=== PATIENT | female | born 1975 | race Caucasian/White ===

== ENCOUNTER 2021-08-09 11:02 | Inpatient (IN) | payer MEDICAID ==
[~2021-08-09] VITALS: Ht 160 cm; Wt 93.2 kg
[~2021-08-09 11:02] MED LIST: ATOR10TA PO; HYDR-4383 PO; HYDR25TA5 PO; Hydralazine Hcl PO; LABE100T5 PO; NITR0.4T51 SL; PANT-47 PO
[2021-08-09] MEDS ORDERED: magnesium 2GM in 50ml NS 50 ML IV ONE (11:20)
[2021-08-09] MEDS ORDERED: normal saline 1000ml 1,000 ML IV ONE (11:20)
[2021-08-09 12:09] LABS: ALBUMIN 3.5 G/DL (3.4-5.0); ANION GAP 11 (8-16); BLOOD UREA NITROGEN 16 MG/DL (7-18); BUN/CREATININE RATIO 15.4 (6.6-38.0); CALCIUM 8.2 MG/DL (8.5-10.1); CHLORIDE 99 MMOL/L (99-107); CREATININE 1.04 MG/DL (0.40-0.90); GLUCOSE 188 MG/DL (70-104); POTASSIUM 3.2 MMOL/L (3.5-5.1); SODIUM 136 MMOL/L (135-145); TOTAL CARBON DIOXIDE 25.6 MMOL/L (24-32); eGFR 57 ML/MIN
[2021-08-09 12:10] LABS: BASOPHILS # (AUTO) 0.1 X10'3 (0-0.2); BASOPHILS % (AUTO) 0.5 % (0-1); EOSINOPHILS # (AUTO) 0.3 X10'3 (0-0.9); EOSINOPHILS % (AUTO) 2.4 % (0-6); HEMATOCRIT 35.5 % (35.0-45.0); HEMOGLOBIN 11.9 g/dl (12.0-16.0); LYMPHOCYTES % (AUTO) 17.5 % (21-51); MEAN CORPUSCULAR HEMOGLOBIN 31.3 PG (27.0-31.0); MEAN CORPUSCULAR HGB CONC 33.7 g/dL (33.0-36.5); MEAN CORPUSCULAR VOLUME 92.9 FL (78-98); MEAN PLATELET VOLUME 7.8 FL (7.4-10.4); MONOCYTES # (AUTO) 0.5 X10'3 (0-0.9); MONOCYTES % (AUTO) 4.6 % (2-12); NEUTROPHILS # (AUTO) 8.8 X10'3 (1.8-7.7); PLATELET COUNT 326 X10'3 (140-440); RED BLOOD COUNT 3.81 X10'6 (4.20-5.60); RED CELL DISTRIBUTION WIDTH 14.1 % (11.5-14.5); WHITE BLOOD COUNT 11.7 X10'3 (4.5-11.0)
[2021-08-09] MEDS ORDERED: potassium Cl 20 mEq SR tablet PO STA (12:25)
[2021-08-09] MEDS ORDERED: POTASSIUM BICARB 20meq eff tab 20 MEQ TABLET.EFF PO STA (12:59)
[2021-08-09] MEDS ORDERED: potassium Cl 20 mEq SR tablet PO PRN (15:20)
[2021-08-09] MEDS ORDERED: acetaminophen 325mg tablet PO PRN (15:20)
[2021-08-09] MEDS ORDERED: magnesium 4gm in 100ml NS 100 ML IV PRN (15:20)
[2021-08-09] MEDS ORDERED: ondansetron/PF 4mg/2ml inj IV PRN (15:20)
[2021-08-09] MEDS ORDERED: mag hydrox/Alum hydrox/simeth 30ml oral suspension PO PRN (15:20)
[2021-08-09] MEDS ORDERED: magnesium hydroxide 30ml (MOM) UD suspension PO PRN (15:20)
[2021-08-09] MEDS ORDERED: potassium CL 10mEq/100ml bag 100 ML IV PRN (15:20)
[2021-08-09] MEDS ORDERED: magnesium 2GM in 50ml NS 50 ML IV PRN (15:20)
[2021-08-09] MEDS ORDERED: magnesium Cl slow-release 64mg tablet PO PRN (15:20)
[2021-08-09] MEDS ORDERED: PERFLUTREN PROTEIN-A MICROSPHR (Optison) 0.22 MG/ML 3ML VIAL IV ONE (15:20)
[2021-08-09] MEDS ORDERED: DOBUTamine-DoBUTrex 500mg/D5W 250 ML IV SCH (15:50)
[2021-08-09] MEDS ORDERED: ALOG12.52 PO (16:14)
[2021-08-09] MEDS ORDERED: METF-1203 PO (16:14)
[2021-08-09] MEDS ORDERED: GABA-530 PO (16:14)
[2021-08-09] MEDS ORDERED: LOSA100T57 PO (16:14)
[2021-08-09] MEDS ORDERED: SERT-432 PO (16:14)
[2021-08-09] MEDS ORDERED: CHLO50TA PO (16:14)
[2021-08-09] MEDS ORDERED: ATOR20TA66 PO (16:14)
[2021-08-09] MEDS ORDERED: CARV25TA2 PO (16:14)
[2021-08-09] MEDS: normal saline 1000ml 1,000 ML IV SCH (17:52)
[2021-08-09] MEDS: K and/or MAG REPLACEMENT MC SCH (20:00)
[2021-08-09] MEDS: gabapentin 100mg capsule PO SCH (20:40)
[2021-08-09] MEDS: heparin, porcine 5000 units/ml vial SQ SCH (20:41)
[2021-08-09] MEDS: docusate sod 100mg capsule PO SCH (20:41)
[2021-08-10] MEDS: potassium Cl 20 mEq SR tablet PO PRN ×2 (00:23→09:55)
[2021-08-10] MEDS: normal saline 1000ml 1,000 ML IV SCH ×2 (01:20→11:33)
--- NOTE | 2021-08-10 06:30 | NUR ---
Patient transfering from the ED into room PCU 3028. I have received report from Cate HOLLINGSWORTH and had the opportunity to ask questions and assume patient care.
[2021-08-10 07:00] LABS: BASOPHILS % (AUTO) 0.7 % (0-1); EOSINOPHILS # (AUTO) 0.2 X10'3 (0-0.9); EOSINOPHILS % (AUTO) 3.5 % (0-6); HEMATOCRIT 33.9 % (35.0-45.0); HEMOGLOBIN 11.7 g/dl (12.0-16.0); LYMPHOCYTES # (AUTO) 2.5 X10'3 (1.1-4.8); LYMPHOCYTES % (AUTO) 36.7 % (21-51); MEAN CORPUSCULAR HEMOGLOBIN 32.2 PG (27.0-31.0); MEAN CORPUSCULAR HGB CONC 34.3 g/dL (33.0-36.5); MEAN CORPUSCULAR VOLUME 93.9 FL (78-98); MEAN PLATELET VOLUME 7.6 FL (7.4-10.4); MONOCYTES # (AUTO) 0.4 X10'3 (0-0.9); MONOCYTES % (AUTO) 6.3 % (2-12); NEUTROPHILS # (AUTO) 3.6 X10'3 (1.8-7.7); NEUTROPHILS % (AUTO) 52.8 % (42-75); PLATELET COUNT 311 X10'3 (140-440); RED BLOOD COUNT 3.61 X10'6 (4.20-5.60); RED CELL DISTRIBUTION WIDTH 14.6 % (11.5-14.5); WHITE BLOOD COUNT 6.8 X10'3 (4.5-11.0)
[2021-08-10] MEDS ORDERED: metFORMIN 500mg tablet PO SCH (07:30)
[2021-08-10 07:39] LABS: ALBUMIN 3.4 G/DL (3.4-5.0); ANION GAP 9 (8-16); BLOOD UREA NITROGEN 12 MG/DL (7-18); BUN/CREATININE RATIO 14.8 (6.6-38.0); CALCIUM 8.3 MG/DL (8.5-10.1); CHLORIDE 105 MMOL/L (99-107); CREATININE 0.81 MG/DL (0.40-0.90); GLUCOSE 118 MG/DL (70-104); POTASSIUM 3.4 MMOL/L (3.5-5.1); SODIUM 140 MMOL/L (135-145); eGFR 76 ML/MIN
[2021-08-10 08:00] VITALS: BP 102/68
[2021-08-10] MEDS ORDERED: chlorthalidone 25mg tablet PO SCH (08:00)
[2021-08-10] MEDS: K and/or MAG REPLACEMENT MC SCH (08:00)
[2021-08-10] MEDS ORDERED: atorvastatin 20mg tablet PO SCH (08:00)
[2021-08-10] MEDS ORDERED: linagliptin 5mg tablet PO SCH (08:00)
[2021-08-10] MEDS ORDERED: losartan 50mg tablet PO SCH (08:00)
[2021-08-10] MEDS: docusate sod 100mg capsule PO SCH (09:54)
[2021-08-10] MEDS: gabapentin 100mg capsule PO SCH (09:54)
[2021-08-10 09:55] VITALS: BP_SYST 102
[2021-08-10] MEDS: heparin, porcine 5000 units/ml vial SQ SCH (09:56)
[2021-08-10] MEDS ORDERED: CARV-49 PO (10:39)
--- NOTE | 2021-08-10 12:40 | NUR ---
Patient is stable for discharge per MD. PIV was removed with canula intact and telemetry was discontinued. Belongings were gathered and patient was escorted by significant other to the car to be transported home.
== END 2021-08-10 12:40 | disposition home or self-care (01) | DRG 207 ==
LOC: ER 11:03 → UNDOADMIN 15:22 → ED HOLD 15:22 → OBSVTOIN 15:22 → EDBEDREQ 08-10 06:33 → PCU 3S 08-10 07:41
PROVIDERS: ADMIT Family Medicine; ATTEND Family Medicine
DX: I95.9 Hypotension, unspecified (principal); E11.9 Type 2 diabetes mellitus without complications; E66.9 Obesity, unspecified; E87.6 Hypokalemia; F12.90 Cannabis use, unspecified, uncomplicated; R94.31 Abnormal electrocardiogram [ECG] [EKG]; I10 Essential (primary) hypertension; K21.9 Gastro-esophageal reflux disease without esophagitis; F41.9 Anxiety disorder, unspecified; Z82.5 Family history of asthma and other chronic lower respiratory diseases; Z88.8 Allergy status to other drugs, medicaments and biological substances; Z68.36 Body mass index [BMI] 36.0-36.9, adult; Z79.899 Other long term (current) drug therapy
CPT/HCPCS: 36415; 71045; 80048; 82948; 83735; 85025; 93005; 93306; 96365; 99285; G0378; J1644; J3475; J7030

== ENCOUNTER 2024-06-25 17:33 | Emergency (ER) | payer MEDICAID ==
[~2024-06-25] VITALS: Ht 160 cm; Wt 93.4 kg
[~2024-06-25 17:33] MED LIST changes: +ALOG12.52 PO; -ATOR10TA PO; +ATOR20TA66 PO; +CHLO50TA PO; +GABA-530 PO; -HYDR-4383 PO; -HYDR25TA5 PO; -Hydralazine Hcl PO; -LABE100T5 PO; +LOSA100T58 PO; +METF-1203 PO; -NITR0.4T51 SL; -PANT-47 PO
[2024-06-25 18:03] VITALS: PULSE 81; RESP 16
[2024-06-25] MEDS ORDERED: HYDR50TA46 PO (18:36)
[2024-06-25] MEDS ORDERED: CEPH-585 PO (18:42)
[2024-06-25] MEDS: cephalexin 250mg capsule PO ONE (18:55)
[2024-06-25 18:56] VITALS: BP 220/125; TEMP 97.1; O2SAT 98
== END 2024-06-25 19:00 | disposition home or self-care (01) ==
LOC: ER 17:34
DX: L72.9 Follicular cyst of the skin and subcutaneous tissue, unspecified (principal); L08.9 Local infection of the skin and subcutaneous tissue, unspecified; I10 Essential (primary) hypertension; F12.90 Cannabis use, unspecified, uncomplicated; Z88.8 Allergy status to other drugs, medicaments and biological substances; Z79.899 Other long term (current) drug therapy
CPT/HCPCS: 99283

== ENCOUNTER 2024-11-03 09:01 | Emergency (ER) | payer MEDICAID ==
[~2024-11-03] VITALS: Ht 160 cm; Wt 90.4 kg
[~2024-11-03 09:01] MED LIST changes: -GABA-530 PO; +HYDR50TA46 PO; -METF-1203 PO
[2024-11-03 09:06] VITALS: TEMP 98.1
[2024-11-03 09:29] LABS: BASOPHILS # (AUTO) 0.1 X10'3 (0-0.2); BASOPHILS % (AUTO) 0.8 % (0-1); EOSINOPHILS # (AUTO) 0.4 X10'3 (0-0.9); EOSINOPHILS % (AUTO) 3.8 % (0-6); HEMATOCRIT 48.1 % (35.0-45.0); HEMOGLOBIN 16.6 g/dl (12.0-16.0); LYMPHOCYTES % (AUTO) 30.1 % (21-51); MEAN CORPUSCULAR HEMOGLOBIN 30.7 PG (27.0-31.0); MEAN CORPUSCULAR HGB CONC 34.5 g/dL (33.0-36.5); MEAN CORPUSCULAR VOLUME 89.1 FL (78-98); MEAN PLATELET VOLUME 7.5 FL (7.4-10.4); MONOCYTES # (AUTO) 0.5 X10'3 (0-0.9); MONOCYTES % (AUTO) 5.3 % (2-12); NEUTROPHILS # (AUTO) 5.9 X10'3 (1.8-7.7); PLATELET COUNT 294 X10'3 (140-440); RED BLOOD COUNT 5.39 X10'6 (4.20-5.60); WHITE BLOOD COUNT 9.9 X10'3 (4.5-11.0)
[2024-11-03 09:51] LABS: ALANINE AMINOTRANSFERASE 75 U/L (12-78); ALBUMIN 4.1 G/DL (3.4-5.0); ALBUMIN/GLOBULIN RATIO 0.9 (1.1-1.5); ALKALINE PHOSPHATASE 119 IU/L (46-116); ANION GAP 11 (8-16); ASPARTATE AMINO TRANSFERASE 39 U/L (10-37); BILIRUBIN,TOTAL 0.6 MG/DL (0.1-1.0); BLOOD UREA NITROGEN 16 MG/DL (7-18); BUN/CREATININE RATIO 18.2 (10.0-20.0); CALCIUM 9.2 MG/DL (8.5-10.1); CHLORIDE 100 MMOL/L (99-107); CREATININE 0.88 MG/DL (0.40-0.90); GLUCOSE 247 MG/DL (70-104); LIPASE 38 U/L (16-77); POTASSIUM 3.1 MMOL/L (3.5-5.1); SODIUM 138 MMOL/L (135-145); TOTAL CARBON DIOXIDE 26.6 MMOL/L (24-32); TOTAL PROTEIN 8.6 G/DL (6.4-8.2); eCRCL 63 ML/MIN; eGFR 68 ML/MIN
[2024-11-03 10:08] LABS: BILIRUBIN,URINE NEGATIVE (Neg); CLARITY,URINE SLIGHTLY CLOUDY (Clear); COLOR,URINE YELLOW (Yellow); GLUCOSE, URINE NEGATIVE (Neg); KETONES,URINE NEGATIVE (Neg); LEUKOCYTE ESTERASE ,URINE NEGATIVE (Neg); NITRITES, URINE NEGATIVE (Neg); OCCULT BLOOD,URINE NEGATIVE (Neg); PROTEIN,URINE 100 mg/dl (Neg); UROBILINOGEN,URINE 0.2 E.U/dL (0.2-1.0)
[2024-11-03 10:12] LABS: UA COLLECTION TYPE URINAL
[2024-11-03 10:14] LABS: BACTERIA,URINE FEW /HPF (Neg); MUCUS STRANDS FEW /LPF (Neg); RBC,URINE NONE SEEN /HPF (0-2); SQUAMOUS EPITHELIAL CELL,UR MANY /LPF (FEW); WBC,URINE 0-4 /HPF (0-4)
[2024-11-03] MEDS: POTASSIUM CHLORIDE 20 MEQ/15 ML oral solution PO STA (11:02)
[2024-11-03] MEDS: normal saline 1000ml 1,000 ML IV ONE (11:26)
[2024-11-03 11:53] LABS: URINE HCG NEGATIVE (NEG)
[2024-11-03 13:31] VITALS: BP 148/96; PULSE 83; RESP 14; O2SAT 97
== END 2024-11-03 13:45 | disposition home or self-care (01) ==
LOC: ER 09:02
DX: B34.9 Viral infection, unspecified (principal); I10 Essential (primary) hypertension; F12.90 Cannabis use, unspecified, uncomplicated; Z20.822 Contact with and (suspected) exposure to COVID-19
CPT/HCPCS: 36415; 71045; 80053; 81001; 81025; 83690; 85025; 87502; 87503; 87811; 93005; 96360; 99285; J7030; 96361; 96374

== ENCOUNTER 2025-01-18 08:12 | Inpatient (IN) | payer MEDICAID ==
[~2025-01-18] VITALS: Ht 160 cm; Wt 90.9 kg
--- NOTE | 2025-01-18 08:24 | Physician Documentation ---
History of Present Illness ~ Stated Complaint: STROKE ALERT Time Seen by MD: 08:20 Primary Medical Doctor: Rebeca HPI 49 yof h/o htn, brain mass s/p resection 2022 Patient presents today for headache and facial droop. She reports going to bed around midnight feeling fine woke up this morning around 6 with feeling of headache and feeling off. Reports noticing right sided facial droop. Medication Reconciliation Allergies: Uncoded Allergies: DEPO PROVERA (Allergy, Intermediate, 10/29/13) DEPO SHOT (Allergy, Intermediate, 10/29/13) Scheduled Alogliptin Benzoate (Alogliptin), 1 TAB PO DAILY, (Reported) Atorvastatin Calcium (Atorvastatin Calcium), 1 TAB PO DAILY, (Reported) Chlorthalidone (Chlorthalidone), 1 TAB PO DAILY, (Reported) Hydralazine HCl (Hydralazine HCl), 1 TAB PO TID, (Reported) Losartan Potassium (Losartan Potassium), 1 TAB PO DAILY, (Reported) Past Medical History Past Medical History: Hypertension, Constipation, *RENAL/* Past Surgical History: other Alcohol Use: None Drug Use: marijuana Review of Systems All Other Systems at this time: Reviewed and Negative Constitutional: Denies: fever Respiratory: Denies: shortness of breath Cardiovascular: Denies: chest pain Gastrointestinal: Denies: abdominal pain Physical Exam General Appearance Well-appearing no distress resting comfortably in bed No JVD Moist mucous membranes Pulmonary clear to auscultation bilaterally Cardiac no murmur Abdomen is soft nontender Lower extremity no edema Awake alert oriented Awake alert oriented Right sided lower facial droop. No eyelid eye or forehead involvement Cranial nerves 2-12 intact Visual anne full to confrontation Pupils PERRLA Extraocular motions intact Normal speech no aphasia no dysarthria Normal [id number] no dysmetria 5/5 bilateral upper and lower extremity strength No pronator drift diminished left facial sensation. Negative Romberg Normal gait t-PA t-PA given w/in 2hrs?: No Reason t-PA not Given: Medical Contraindication Progress Progress Note 10:45 a.m. 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 discussed case with stroke Neurology at [facility] on-call physician who based on the clinical symptoms does not 1203 d/w Dr. Baker neuro IR [facility] recomends anti platelets and MRI. no emergent intervention Results/Orders Reviewed/noted all lab results: Yes Results/Orders Orders - BHANU DUNN MD Monitor (01/18/25 08:18) 2 Large Bore Ivs (01/18/25 08:18) Chest,Single View (01/18/25 08:18) Accucheck (01/18/25 08:18) Ct Stroke Alert (01/18/25 08:26) Cta Neck/Head (01/18/25 08:39) [place] Prov.Neuro Consult (01/18/25 08:18) [place] Prov.Neuro Consult (01/18/25 08:21) Page Hospitalist (01/18/25 10:45) Fill Out Med Reconciliation (01/18/25 10:45) Completed Orders - BHANU DUNN MD Cbc/Diff (01/18/25 08:18) Electrocardiogram (01/18/25 08:18) Chest,Single View (01/18/25 08:18) Ct Stroke Alert (01/18/25 08:26) BMP (01/18/25 08:18) PTT (01/18/25 08:18) Pt Inr (01/18/25 08:18) Cta Neck/Head (01/18/25 08:39) Iohexol 350mg/Ml 100ml (Omnipaque 350mg/ (01/18/25 08:25) Ketorolac Trometh 15mg/Ml Vial (Toradol (01/18/25 09:50) Ringers Solution, Lacted (Lactated Ringe (01/18/25 09:50) Aspirin 81mg Chew Tablet (Aspirin 81mg C (01/18/25 11:00) Clopidogrel Tablet (Plavix Tablet) (01/18/25 11:00) Hgb A1c (01/18/25 08:27) Medications Received in ER Medications (Trade) Dose Ordered Sig/[place] Route PRN Reason Start Time Stop Time Status Last Admin Dose Admin (Toradol injection) 15 mg ONCE ONCE IV 01/18/25 09:50 01/18/25 09:52 DC 01/18/25 10:10 15 MG Lactated Ringer's 1,000 ml @ 1,000 mls/hr ONCE ONCE IV 01/18/25 09:50 01/18/25 10:49 DC 01/18/25 10:07 1,000 MLS/HR (aspirin 81MG chew tablet) 81 mg ONCE ONCE PO 01/18/25 11:00 01/18/25 11:18 DC 01/18/25 11:22 81 MG (Plavix tablet) 75 mg ONCE ONCE PO 01/18/25 11:00 01/18/25 11:18 DC 01/18/25 11:21 75 MG Vital Signs 01/18/25 01/18/25 01/18/25 01/18/25 08:39 08:54 09:11 09:13 Temp 97.8 97.8 Pulse 86 78 80 Resp 18 18 24 20 B/P (MAP) 214/112 201/106 203/107 (139) Pulse Ox 99 98 98 01/18/25 01/18/25 01/18/25 01/18/25 09:33 10:10 10:49 10:50 Temp 97.8 Pulse 76 73 73 Resp 16 10 20 20 B/P (MAP) 200/119 183/109 (133) 183/109 Pulse Ox 98 98 98 Laboratory Tests Test 01/18/25 08:27 White Blood Count 6.5 Red Blood Count 4.71 Hemoglobin 14.2 Hematocrit 41.3 Mean Corpuscular Volume 87.7 Mean Corpuscular Hemoglobin 30.1 Mean Corpuscular Hemoglobin Concent 34.4 Red Cell Distribution Width 13.7 Platelet Count 229 Mean Platelet Volume 7.4 Neutrophils (%) (Auto) 54.8 Lymphocytes (%) (Auto) 34.3 Monocytes (%) (Auto) 4.9 Eosinophils (%) (Auto) 5.0 Basophils (%) (Auto) 1.0 Neutrophils # (Auto) 3.5 Lymphocytes # (Auto) 2.2 Monocytes # (Auto) 0.3 Eosinophils # (Auto) 0.3 Basophils # (Auto) 0.1 CBC Comment Prothrombin Time 9.9 INR International Normalized Ratio 1.0 Activated Partial Thromboplast Time 25 Coagulation Comments Sodium Level 139 Potassium Level 3.8 Chloride Level 104 Carbon Dioxide Level 25.4 Anion Gap 10 Blood Urea Nitrogen 12 Creatinine 0.79 Estimated GFR/1.73 m2 77 BUN/Creatinine Ratio 15.2 Glucose Level 220 H Hemoglobin A1c 8.3 H Calcium Level 9.0 Albumin 3.6 Chemistry Comments EKG/XRAY/CT/US/VASC/MRI CT : Impression I independently interpreted CTA shows no acute stroke Medical Decision Making Differential Dx:Considerations: Include: Fuentes's Palsey, CVA, Mass lesion Departure Disposition: ADMITTED INPATIENT Admitted to Inpatient Unit: to hospitalist Impression: Primary Impression: CVA (cerebral vascular accident) Referrals: NO PRIMARY CARE PROVIDER (PCP) Critical Care Note Total Time (mins): 30 Critical Care Note The very real possibility of a deterioration of this patient's condition required the highest level of my preparedness for sudden, emergent intervention. I provided critical care services, which included medication orders, frequent reevaluations of the patient's condition and response to treatment, ordering and reviewing test results, and discussing the case with various consultants. Excl udes time spent performing separately billable procedures. The critical care time associated with the care of the patient was 30 minutes in the acute management of CVA requiring consideration for tPA Signature Scribe Signature: kumar Attestation: BHANU Echols MD January 18, 2025 08:24
[2025-01-18] MEDS ORDERED: iohexol 350MG/ML 100ml bottle IV ONE (08:25)
[2025-01-18 08:38] LABS: BASOPHILS # (AUTO) 0.1 X10'3 (0-0.2); EOSINOPHILS # (AUTO) 0.3 X10'3 (0-0.9); HEMATOCRIT 41.3 % (35.0-45.0); HEMOGLOBIN 14.2 g/dl (12.0-16.0); LYMPHOCYTES # (AUTO) 2.2 X10'3 (1.1-4.8); LYMPHOCYTES % (AUTO) 34.3 % (21-51); MEAN CORPUSCULAR HEMOGLOBIN 30.1 PG (27.0-31.0); MEAN CORPUSCULAR HGB CONC 34.4 g/dL (33.0-36.5); MEAN CORPUSCULAR VOLUME 87.7 FL (78-98); MEAN PLATELET VOLUME 7.4 FL (7.4-10.4); MONOCYTES # (AUTO) 0.3 X10'3 (0-0.9); MONOCYTES % (AUTO) 4.9 % (2-12); NEUTROPHILS # (AUTO) 3.5 X10'3 (1.8-7.7); NEUTROPHILS % (AUTO) 54.8 % (42-75); PLATELET COUNT 229 X10'3 (140-440); RED BLOOD COUNT 4.71 X10'6 (4.20-5.60); RED CELL DISTRIBUTION WIDTH 13.7 % (11.5-14.5); WHITE BLOOD COUNT 6.5 X10'3 (4.5-11.0)
--- NOTE | 2025-01-18 08:43 | ELECTROCARDIOGRAPH REPORT ---
[facility] Test Date: 2025-01-18 Test Time: 08:41:16 Pat Name: SONJA BAÑUELOS Department: [facility] Patient ID: [facility]-[id number] Room: [place] [address] Gender: F Sequins Winder: : 1975 Requested By: BHANU DUNN Order Number: [id number] Reading MD: Dr. Alexander Black Measurements Intervals [place] Rate: 85 P: 52 AR: 179 QRS: 76 QRSD: 95 T: 257 QT: 366 QTc: 436 Interpretive Statements Pacemaker spikes or artifacts Sinus rhythm Borderline repolarization abnormality Electronically Signed On 01-19-2025 11:01:[address] Alexander Black Please click the below link to view image of tracing.
--- NOTE | 2025-01-18 08:46 | RADIOLOGY REPORT ---
EXAM: CT CT STROKE ALERT INDICATION: Stroke Alert TECHNIQUE: CT of the head without intravenous contrast. Coronal and sagittal reformatted images are s ubmitted. Radiation Dose : 1. Head: CT Dose: CTDI volume is 64.1 mGy. Dose-length product is 1077.8 mGy*cm The dose indicators for CT are the volume Computed Tomography (CT) Dose Index (CTDIvol) and the Dose Length Product (DLP), and are measured in units of mGy and mGy-cm, respectively. These indicators are not patient dose, but values generated from the CT scanner acquisition factors. The report includes radiation exposure data for exposures received during this examination. All CT scans at this medical facility are performed using dose modulation techniques as appropriate to a performed exam including the following: Automated exposure control was utilized; adjustment of the MA and/or KV according to patient size; and use of iterative reconstruction technique. COMPARISON: None FINDINGS: There is no evidence of acute intracranial hemorrhage, extra-axial collection, mass effect, midline s hift, herniation or hydrocephalus. The ventricles, sulci and cisterns are age appropriate. The zabala-white differentiation is intact. Mucosal thickening in the sphenoid sinus. Mastoid air cells are clear. Empty sella noted. No depressed calvarial fracture. Calcified mass in the vertex. IMPRESSION: 1. No acute intracranial abnormality.
[2025-01-18 08:48] LABS: ALBUMIN 3.6 G/DL (3.4-5.0); ANION GAP 10 (8-16); BLOOD UREA NITROGEN 12 MG/DL (7-18); BUN/CREATININE RATIO 15.2 (10.0-20.0); CHLORIDE 104 MMOL/L (99-107); CREATININE 0.79 MG/DL (0.40-0.90); GLUCOSE 220 MG/DL (70-104); POTASSIUM 3.8 MMOL/L (3.5-5.1); SODIUM 139 MMOL/L (135-145); TOTAL CARBON DIOXIDE 25.4 MMOL/L (24-32); eCRCL 70 ML/MIN; eGFR 77 ML/MIN
[2025-01-18 08:50] LABS: APTT 25 SECONDS (22-32); PROTHROMBIN TIME 9.9 SECONDS (9.0-12.0)
--- NOTE | 2025-01-18 09:03 | RADIOLOGY REPORT ---
INDICATION: Stroke Alert COMPARISON: None TECHNIQUE:CTA head and neck was performed with intravenous contrast. 3D/MIP image postprocessing was performed and images were used for interpretation and reporting. RADIATION DOSE: CTDIvol: 23.8 mGy, DLP: 11.9 mGy*cm FINDINGS: There is focal high-grade stenosis in the right internal carotid artery at its cavernous segment. The remainder of the right internal carotid artery is patent. Left internal carotid artery is patent No evidence of high-grade stenosis or occlusion of the proximal branch vessels of the [place]. The basilar artery is patent. Hypoplastic P1 segment of the left posterior communicating artery. The intracranial segments of the bilateral vertebral arteries are unremarkable in caliber. Posterior com municating arteries are hypoplastic or absent. No evidence of large aneurysm or arteriovenous malform ation. The visualized thoracic aortic arch and proximal great vessels are unremarkable. The left common, int ernal and external carotid arteries are within normal limits. The right common, internal and external carotid arteries are within normal limits. The cervical segments of the right and left vertebral art eries are within normal limits. The limited visualized lung apices are clear. Multilevel cervical spo ndylosis. IMPRESSION: 1. 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 The remainder of the right ICA is patent. No large vessel occlusion. 2. No evidence of hemodynamically significant cervical stenosis or dissection. CAROTID STENOSIS REFERENCE Distal internal carotid artery diameter as the denominator for stenosis measurement: MILD = <50% stenosis. MODERATE = 50-69% stenosis. SEVERE = 70-89% stenosis. CRITICAL = 90-99% stenosis. OCCLUDED = 100% stenosis. All CT scans at this medical facility are performed using dose modulation techniques as appropriate t o a performed exam including the following: Automated exposure control was utilized; adjustment of th e MA and/or KV according to patient size; and use of iterative reconstruction technique.
--- NOTE | 2025-01-18 09:09 | RADIOLOGY REPORT ---
CHEST RADIOGRAPH Indication: Stroke Alert Technique: Single frontal view of the chest was obtained Comparison: DI CHEST,SINGLE VIEW on DOS: 11/03/24, CHEST,SINGLE VIEW on DOS: 08/09/21 FINDINGS: Lines and Tubes: None Lungs: No focal consolidation. Pleura: No effusion. No pneumothorax. Cardiomediastinal contours: Unremarkable Bones: No acute osseous abnormality. IMPRESSION: No acute cardiopulmonary disease.
[2025-01-18] MEDS: ringers solution, lacted 1,000 ML IV ONE (10:07)
[2025-01-18] MEDS: ketorolac trometh 15mg/ml vial 15 MG/ML ML IV ONE (10:10)
--- NOTE | 2025-01-18 11:07 | [facility] CONSULT REPORT ---
[facility] Procedure Note [facility] Procedure Note Consult Addendum BP 214/112 Addendum added and electronically signed at 01/18/2025 11:06 () by MD Marcelino Alfred Neuro Note # Demographics Consult Type: Acute Stroke Level 2 (4.5-24 hrs) Patient Location: Emergency Room First Name: SONJA Last Name: EDDA Date of : 1975 Age: 49 Gender: Female Facility: [facility] Time of Initial Page (): 01/18/2025 09:50 Time of Return Call (): 01/18/2025 09:50 # HPI Chief Complaint: - headache History: 49 F with a PMHx of brain tumor s/p resection, poorly controlled HTN, went to bed at midnight felt fine, this morning at 6 AM felt a headache, generalized pain and R facial droop and numbness. She had some LUE tingling associated with facial numbness. # Scores Time of exam and NIHSS (): 01/18/2025 10:44 Level of Consciousness 1a: [0] = Alert; keenly responsive LOC Questions 1b: [0] = Answers both questions correctly LOC Commands 1c: [0] = Performs both tasks correctly Best Gaze 2: [0] = Normal Visual 3: [0] = No visual loss Facial Palsy 4: [2] = Partial paralysis Motor Arm Left 5a: [0] = No drift Motor Arm Right 5b: [0] = No drift Motor Leg Left 6a: [0] = No drift Motor Leg Right 6b: [0] = No drift Limb Ataxia 7: [0] = Absent Sensory 8: [0] = Normal Best Language 9: [0] = No aphasia Dysarthria 10: [0] = Normal Extinction and Inattention 11: [0] = No abnormality NIHSS Total: 2 # Exam Vitals: vital signs reviewed Cranial Nerves: R facial with decreased eyebrow raise on the R # Data Head CT: - no bleed - per radiologist read CTA Head: focal high grade R ICA stenosis CTA Neck: patent vessels # Assessment Impression: - Ischemic Stroke (Acute) # Plan Thrombolytic/Intervention: NOT IV Thrombolysis or IA Intervention candidate Thrombolytic Exclusion: > 4.5 hours Intraarterial Exclusion: - no large vessel occlusion (LVO) Labs: - CBC - comprehensive metabolic panel - hemoglobin A1c - lipid panel Imaging: (urgency: routine): - MRI Brain without contrast Diagnostic Test: - echo with bubble study Therapy/Evaluation: - NPO until swallow evaluation - PT/OT evaluation Medication: - aspirin 81 mg PLUS clopidogrel (Plavix) 75 mg for 21 days, then monotherapy therafter - start statin with goal of LDL < 70 Other: - If patient has any neurological deterioration please call me back immediately - telemetry monitoring - I have discussed my recommendations with the referring provider - permissive hypertension - LDL < 70 Disposition: admit # Logistics Attestation of consult completion: The patient is located at: [facility]. Facility staff participated in the visit. I performed this telemedicine visit from my offsite office utilizing interactive 2 way audio and visual telecommunication technology. Total time spent in telemedicine encounter: I spent 20 minutes reviewing clinical data and/or imaging, obtaining history, examining the patient, communicating with the onsite care team, and in preparation of this report. # Demographics First Name: SONJA Last Name: EDDA Facility: [facility] Electronically signed at 01/18/2025 11:06 ([place] Time) by Neena Vidal MD Neuro Consult Order placed for: Yes NEENA VIDAL MD January 18, 2025 11:07
[2025-01-18] MEDS: clopidogrel 75mg tablet PO ONE (11:21)
[2025-01-18] MEDS: aspirin 81mg tab.chew PO ONE (11:22)
[2025-01-18] MEDS ORDERED: dextrose 50%-water 50ml dispensing syringe IV PRN ×2 (11:40)
[2025-01-18] MEDS ORDERED: DEXTROSE 15 GM of carb/4 tabs (each vial/BOTTLE has 4 tablets) PO PRN ×2 (11:40)
[2025-01-18] MEDS ORDERED: glucagon, human recombinant 1mg kit SUBCUT PRN (11:40)
[2025-01-18] MEDS ORDERED: magnesium sulf-water 4G/100mL 100 ML IV PRN (11:40)
[2025-01-18] MEDS ORDERED: mag hydrox/Alum hydrox/simeth 30ml oral suspension PO PRN (11:40)
[2025-01-18] MEDS ORDERED: magnesium hydroxide 30ml (MOM) UD suspension PO PRN (11:40)
[2025-01-18] MEDS ORDERED: potassium Cl 20 mEq SR tablet PO PRN (11:40)
[2025-01-18] MEDS ORDERED: potassium Cl 40MEQ/1/2NS 520ml 520 ML IV PRN (11:40)
[2025-01-18] MEDS ORDERED: magnesium sulf-water 2g/50mL 50 ML IV PRN (11:40)
[2025-01-18] MEDS ORDERED: ondansetron/PF 4mg/2ml inj IV PRN (11:40)
[2025-01-18] MEDS: INSULIN LISPRO 100 UNIT/ML INSULN.PEN MULTI-DOSE SQ SCH ×2 (12:00→23:02)
[2025-01-18] MEDS: PERFLUTREN PROTEIN-A MICROSPHR (Optison) 0.22 MG/ML 3ML VIAL IV ONE (12:27)
[2025-01-18 12:35] LABS: HEMOGLOBIN A1C 8.3 % (4.5-6.2)
--- NOTE | 2025-01-18 13:36 | RADIOLOGY REPORT ---
EXAM: MR MRI HEAD CLINICAL HISTORY: Acute CVA COMPARISON: CT brain 01/18/2025 TECHNIQUE: Multiplanar, multisequence magnetic resonance imaging of the brain was performed after the administra tion of intravenous contrast. FINDINGS: The FLAIR and blood sensitive sequence are not available. Mild diffuse brain atrophy. Mild chronic small-vessel ischemic changes. No hemorrhages on the provided sequences. No masses, mass effect, midline shift, herniation or cytoto xic edema following a large vascular territory. No intra-axial or extra-axial fluid collections. No evidence of hydrocephalus. The basal cisterns are patent. The vascular flow voids are maintained. There is Nonspecific partially Empty sella. Cerebellar tonsils are normal position. The cerebellum i s unremarkable. Motion artifact limits evaluation of the globes. Otherwise, orbits and globes are unremarkable. Righ t-sided sinonasal postsurgical changes. Minimal mucoperiosteal thickening of the ethmoid air cells an d right maxillary sinus. The remainder of the paranasal sinuses and mastoids are clear. Redemonstrat ion of nodular scalp lesions measuring up to 1.7 cm which may represent sebaceous cysts. No worrisom e calvarial lesions. IMPRESSION: No evidence of acute intracranial abnormalities.
[2025-01-18] MEDS ORDERED: LIDO700A47 TOP (14:36)
[2025-01-18] MEDS ORDERED: FENO160T34 PO (14:36)
[2025-01-18] MEDS ORDERED: ERGO500093 PO (14:36)
[2025-01-18] MEDS ORDERED: LANTUS SQ (14:36)
[2025-01-18] MEDS ORDERED: SERT-434 PO (14:36)
[2025-01-18] MEDS ORDERED: IBUP-1985 PO (14:36)
[2025-01-18] MEDS ORDERED: EMPA10TA PO (14:36)
[2025-01-18] MEDS ORDERED: SEMA1PEN5 (14:36)
[2025-01-18] MEDS ORDERED: GLIM1TAB57 PO (14:36)
[2025-01-18] MEDS ORDERED: POTA-207 PO (14:36)
[2025-01-18] MEDS ORDERED: GABA-535 PO (14:36)
[2025-01-18] MEDS ORDERED: CYCL-1 PO (14:36)
[2025-01-18] MEDS ORDERED: CHLO25TA10 PO (14:36)
[2025-01-18] MEDS: labetalol 20mg/4ml (5mg/ml) syringe IV ONE (14:58)
[2025-01-18] MEDS: oxyCODONE/APAP 5-325mg tablet PO ONE (15:20)
[2025-01-18] MEDS: methylPREDNISolone sod succ 125mg/2ml vial IV ONE (15:20)
[2025-01-18] MEDS: acyclovir 200 MG capsule PO ONE (15:49)
[2025-01-18 17:00] VITALS: BP 192/92; PULSE 89; RESP 12; TEMP 97.8; O2SAT 97
[2025-01-18 20:00] VITALS: RESP 12; O2SAT 97
[2025-01-18] MEDS: K and/or MAG REPLACEMENT MC SCH (20:00)
[2025-01-18] MEDS: acetaminophen 325mg tablet PO PRN (20:36)
[2025-01-18] MEDS: docusate sod 100mg capsule PO SCH (20:36)
[2025-01-18] MEDS: insulin glargine (Lantus) pen - multi-dose SQ SCH (20:38)
[2025-01-18 22:00] VITALS: BP 178/91; PULSE 80; RESP 16; TEMP 98.8; O2SAT 95
--- NOTE | 2025-01-18 22:05 | HISTORY AND PHYSICAL ---
History & Physical Providers to CC ~ History of Present Illness Reason for Admit\Complaint: Facial droop and blurry vision History of Present Illness This is a 49-year-old female who had a surgery for a brain tumor resection likely a meningioma as how the patient describes the lesion two years ago. The patient was at her normal self when she went to bed last evening and she woke up this morning with a headache and a right-sided facial droop as well as mild eyelid lag on the left. The patient has a poorly controlled diabetic and her hemoglobin A1c is 8.3-tele neurologist recommended stroke workup and starting 75 mg of Plavix today along with 81 mg aspirin and to obtain a fasting lipid panel in the keep LDL below 70 Allergies: Uncoded Allergies: DEPO PROVERA (Allergy, Intermediate, 10/29/13) DEPO SHOT (Allergy, Intermediate, 10/29/13) Home Medications Home Medications Active Reported K-Dur* (Potassium Chloride) 20 Meq Tab.prt.sr 1 Tab PO BID Lidocaine 5 % Adh..patch 1 Patch TOP DAILY Ibuprofen 600 Mg Tablet 1 Tab PO TID PRN Lantus* (Insulin Glargine) Unknown Strength Vial Unknown Dose SQ Chlorthalidone 25 Mg Tablet 1 Tab PO DAILY Sertraline HCl 100 Mg Tablet 1 Tab PO DAILY Gabapentin 400 Mg Capsule 1 Cap PO TID PRN Vitamin D2 (Ergocalciferol (Vitamin D2)) 1,250 Mcg (42731 Unit) Capsule 1 Cap PO Q7D Fenofibrate 160 Mg Tablet 1 Tab PO DAILY Amaryl* (Glimepiride) 1 Mg Tablet 1 Tab PO DAILY Jardiance (Empagliflozin) 10 Mg Tablet 1 Tab PO DAILY Cyclobenzaprine* (Cyclobenzaprine HCl) 10 Mg Tablet 1 Tab PO HS Wegovy (Semaglutide) Unknown Strength Pen.injctr Unknown Dose Hydralazine HCl 50 Mg Tablet 1 Tab PO TID Atorvastatin Calcium 20 Mg Tablet 1 Tab PO DAILY Losartan Potassium 100 Mg Tablet 1 Tab PO DAILY Chlorthalidone 50 Mg Tablet 1 Tab PO DAILY Alogliptin (Alogliptin Benzoate) 12.5 Mg Tablet 1 Tab PO DAILY Past Medical History Past Medical History Diabetes mellitus, brain tumor, PVCs, Raynaud's Past Surgical History Surgical History Comment Brain tumor resection, cholecystectomy, D and C to treat dysfunctional uterine bleeding Family History Family History: FH: COPD (chronic obstructive pulmonary disease) MOTHER FH: breast cancer Maternal grandmother Past Social History Social History Comment Does not smoke drink alcohol or use illicit drugs however does eat cannabis edibles ROS ROS Except for positives in the HPI the rest of the 14 point review systems is negative Exam Vitals: Vital Signs Date Time Temp Pulse Resp B/P (MAP) Pulse Ox O2 Delivery O2 Flow Rate FiO2 01/18/25 18:30 79 01/18/25 17:00 97.8 12 192/92 (125) 97 Room Air General: Gen. No acute distress alert and oriented 4 HEENT a right-sided facial droop of the mouth, mild lid lag of the left eye lid Lungs clear to ascultation bilaterally, no wheezes rales or rhonchi appreciated Heart normal sinus rhythm no murmurs rubs or clicks noted Abdomen soft nontender bowel sounds are normoactive Lower extremities no clubbing cyanosis, nor edema appreciated bilaterally Diagnostic Data Last Recorded Lab Results: 01/18/25 0827 01/18/25 0827 Diagnostic Data: Laboratory Tests Test 01/18/25 08:27 Prothrombin Time 9.9 SECONDS (9.0-12.0) INR International Normalized Ratio 1.0 INR Activated Partial Thromboplast Time 25 SECONDS (22-32) Coagulation Comments Advance Care Planning Advanced Care plannin - 30 Minutes Problems: (1) CVA (cerebral vascular accident) Status: Acute Additional Plan # right sided mouth facial droop with left eye lid lag- Dr Rosario tele neurologist recommended a stroke workup and to start 75 mg of Plavix daily along with 81 mg aspirin daily x3 weeks and a check a fasting lipid panel. The patient's MRI of the head was negative for CVA CTA of the head demonstrated a high-grade stenosis of the cavernous segment of the right internal carotid artery- the tele neurologist did appreciate this finding and I did discuss this with neurosurgeon Dr. Jones and Dr. Thorne ED physician discussed these findings with on-call neuro interventional radiologist Dr. Baker at [facility] who recommended antiplatelets but no emergent intervention Fuentes's palsy could be a possibility- however the treatment for Fuentes's palsy would include prednisone 60 mg daily x7 days as well as a five day tapering dose- valacyclovir is also recommended with 1 g t.i.d. x7 days however the patient's blood sugars significantly uncontrolled and prednisone is relatively contraindicated. # zoy-fshqdsa-lvxbkxeuw diabetes mellitus with poor control hemoglobin A1c is 8.3 however the patient's blood sugars are up trending now in the last blood sugars for 16 initially was 220 I have started the patient on Lantus 20 units of morning she had received tenuous this evening and a high dose sliding scale insulin. # hypertension currently allowing for permissive hypertension love any antihypertensive medications I spent a total of 17 minutes on reviewing various resuscitative measures/ ACP with the patient at the time of admission. The patient has decided on a full code status Date of Service: January 18, 2025 Billing Provider: BRITTANEY PHILLIP DO Common Visit Codes: 39024-[id number] INP/OBS CARE (HIGH) Secondary Visit Codes: 36185-[id number] CARE PLAN 30 MINUTES BRITTANEY PHILLIP DO January 18, 2025 22:05
[2025-01-19] VITALS (7 sets, daily range): BP systolic 184–198; BP diastolic 85–107; PULSE 77–87; RESP 15–19; TEMP 97.7–98.4; O2SAT 94–99
[2025-01-19] MEDS: hydrALAZINE 20mg/ml inj. IV ONE (06:01)
[2025-01-19 06:47] LABS: BASOPHILS % (AUTO) 0.3 % (0-1); EOSINOPHILS % (AUTO) 0.1 % (0-6); HEMATOCRIT 45.5 % (35.0-45.0); HEMOGLOBIN 15.5 g/dl (12.0-16.0); LYMPHOCYTES # (AUTO) 1.1 X10'3 (1.1-4.8); LYMPHOCYTES % (AUTO) 8.6 % (21-51); MEAN CORPUSCULAR HEMOGLOBIN 29.8 PG (27.0-31.0); MEAN CORPUSCULAR HGB CONC 34.1 g/dL (33.0-36.5); MEAN CORPUSCULAR VOLUME 87.2 FL (78-98); MEAN PLATELET VOLUME 7.8 FL (7.4-10.4); MONOCYTES # (AUTO) 0.3 X10'3 (0-0.9); MONOCYTES % (AUTO) 2.3 % (2-12); NEUTROPHILS # (AUTO) 11.5 X10'3 (1.8-7.7); NEUTROPHILS % (AUTO) 88.7 % (42-75); PLATELET COUNT 290 X10'3 (140-440); RED BLOOD COUNT 5.22 X10'6 (4.20-5.60); RED CELL DISTRIBUTION WIDTH 14.1 % (11.5-14.5)
[2025-01-19 07:07] LABS: ALANINE AMINOTRANSFERASE 103 U/L (12-78); ALBUMIN 3.8 G/DL (3.4-5.0); ALBUMIN/GLOBULIN RATIO 0.9 (1.1-1.5); ALKALINE PHOSPHATASE 105 IU/L (46-116); ANION GAP 15 (8-16); ASPARTATE AMINO TRANSFERASE 43 U/L (10-37); BILIRUBIN,TOTAL 0.5 MG/DL (0.1-1.0); BLOOD UREA NITROGEN 17 MG/DL (7-18); BUN/CREATININE RATIO 16.7 (10.0-20.0); CALCIUM 9.7 MG/DL (8.5-10.1); CHLORIDE 99 MMOL/L (99-107); CHOL/HDL RATIO 5.8 (0.00-4.99); CHOLESTEROL 334 MG/DL (0-200); CREATININE 1.02 MG/DL (0.40-0.90); GLUCOSE 312 MG/DL (70-104); HDL CHOLESTEROL 58 MG/DL (35-60); LDL CHOLESTEROL 201 MG/DL (50-100); SODIUM 138 MMOL/L (135-145); TOTAL CARBON DIOXIDE 24.2 MMOL/L (24-32); TRIGLYCERIDES 273 MG/DL (20-135); eCRCL 54 ML/MIN; eGFR 57 ML/MIN
--- NOTE | 2025-01-19 07:42 | CARDIOLOGY REPORT ---
APPROVED REPORT EXAM: Comprehensive 2D, Doppler, and color-flow Echocardiogram with saline. Patient Location: ER RM 12 Blood Pressure: 183/109 mmHg Heart Rate: 69 bpm Rhythm: Sinus Indications CVA/TIA Hypertension Diabetes NO [employer]PERVIS[employer] Previous ECHO: 08/09/21, [facility], AB, EF: 70; mLAE 2D Dimensions LA Diam4.1 cm IVSd 1.0 (0.7-1.1cm) LVDd 4.6 cm PWd 1.0 (0.7-1.1cm) IVSs 1.5 (0.8-1.2cm) LVDs 3.0 (2.5-4.0cm) PWs 1.5 (0.8-1.2cm) LVOT Diameter 1.87 (1.8-2.4cm) LVEF(%) 64.3 (>50%) IVC 14.38 mm FS (%) 35.0 % SV 62.8 ml CO 4.5 L/min M-Mode Dimensions Left Atrium(MM) 4.12 (2.5-4.0cm) Aortic Root 3.07 (2.2-3.7cm) Aortic Cusp Exc 1.56 (1.5-2.0cm) MV EPSS 0.2 (<0.5cm) Aortic Valve AoV Peak Gerard. 136.2 cm/s AoV VTI 24.2 cm AO Peak GR. 7.4 mmHg AO Mean GR. 3 mmHg LVOT VTI 21.80 cm LVOT Peak Gerard. 109.3 cm/s TAMMIE(VTI)/BSA 2.46 cm2/m2 TAMMIE (VTI) 2.46 cm2 Mitral Valve MV E Velocity 87.3 cm/s MV Peak Gr. 3 mmHg MV DECEL TIME 200 ms MV A Velocity 102.3 cm/s MV PHT 68 ms E/A Ratio 0.9 MVA (PHT) 3.24 cm2 MV VMax90.3 cm/s TDI Lateral E' P. V8.87 cm/s E/Lateral E' 9.8 Pulmonary Valve PAEDP11.44 mmHg Tricuspid Valve TR P. Velocity 181 cm/s RAP ESTIMATE 10 mmHg TR Peak Gr. 13 mmHg RVSP 23 mmHg LEFT VENTRICLE Normal LV size and wall thickness. Overall systolic function is normal. LVEF is 65%. RIGHT VENTRICLE RV is normal size and function. ATRIA Left atrium is mildly dilated. Saline study was performed with 2 IV injections of 10 ccs of agitated normal saline at rest, with cough, and with valsalva. Negative saline study for right to left flow. AORTIC VALVE Trileaflet AV appears mildly sclerotic without stenosis. No insufficiency. MITRAL VALVE Mild mitral annular calcification without stenosis. Trace regurgitation. TRICUSPID VALVE The tricuspid valve is normal in structure with trace regurgitation. PULMONIC VALVE The pulmonary valve is normal in structure with physiologic insufficiency. GREAT VESSELS The aortic root is normal in size. The IVC is normal in size and collapses >50% with inspiration. PERICARDIUM Normal pericardium. No effusion. Other Information Study Quality: Adequate Conclusion Normal LV size and wall thickness. Overall systolic function is normal. LVEF is 65%. RV is normal size and function. Left atrium is mildly dilated. Saline study was performed with 2 IV injections of 10 ccs of agitated normal saline at rest, with cou gh, and with valsalva. Negative saline study for right to left flow. Trileaflet AV appears mildly sclerotic without stenosis. No insufficiency. Mild mitral annular calcification without stenosis. Trace regurgitation. The tricuspid valve is normal in structure with trace regurgitation. The pulmonary valve is normal in structure with physiologic insufficiency. Normal pericardium. No effusion.
[2025-01-19] MEDS: insulin glargine (Lantus) pen - multi-dose SQ SCH ×2 (07:48→19:48)
[2025-01-19] MEDS ORDERED: clopidogrel 300mg tablet PO ONE (09:30)
[2025-01-19] MEDS: insulin glargine (Lantus) pen - multi-dose SQ ONE (10:38)
[2025-01-19] MEDS: clopidogrel 75mg tablet PO ONE (10:42)
[2025-01-19] MEDS: atorvastatin 20mg tablet PO ONE (10:42)
[2025-01-19] MEDS: aspirin 81mg tab.chew PO ONE (10:42)
[2025-01-19] MEDS: ketorolac trometh 15mg/ml vial 15 MG/ML ML IV ONE (12:43)
[2025-01-19] MEDS: predniSONE 20 mg tablet PO ONE ×2 (14:40→14:50)
[2025-01-19] MEDS: valacyclovir 500mg tablet PO SCH (17:38)
--- NOTE | 2025-01-19 20:09 | PROGRESS NOTE ---
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 No acute distress alert and oriented 4 HEENT a right-sided facial droop of the mouth, mild lid lag of the right eye lid Lungs clear to ascultation bilaterally, no wheezes rales or rhonchi appreciated Heart normal sinus rhythm no murmurs rubs or clicks noted Abdomen soft nontender bowel sounds are normoactive Lower extremities no clubbing cyanosis, nor edema appreciated bilaterally Coagulation Studies Laboratory Tests Test 01/18/25 08:27 Prothrombin Time 9.9 SECONDS (9.0-12.0) INR International Normalized Ratio 1.0 INR Activated Partial Thromboplast Time 25 SECONDS (22-32) Coagulation Comments Problem\Assessment\Plan Problems/Diagnosis: (1) CVA (cerebral vascular accident) # right sided mouth facial droop with left eye lid lag-CVA versus Fuentes's palsy Dr Rosario tele neurologist recommended a stroke workup and to start 75 mg of Plavix daily along with 81 mg aspirin daily x3 weeks and a check a fasting lipid panel. The patient's MRI of the head was negative for CVA CTA of the head demonstrated a high-grade stenosis of the cavernous segment of the right internal carotid artery- the tele neurologist did appreciate this finding and I did discuss this with neurosurgeon Dr. Jones and Dr. Thorne ED physician discussed these findings with on-call neuro interventional radiologist Dr. Baker at [facility] who recommended antiplatelets but no emergent intervention Fuentes's palsy could be a possibility- however the treatment for Fuentes's palsy would include prednisone 60 mg daily x7 days as well as a five day tapering dose- valacyclovir is also recommended with 1 g t.i.d. x7 days however the patient's blood sugars significantly uncontrolled and prednisone is relatively contraindicated. 01/19 started Fuentes's palsy treatment and continue aspirin Plavix- the patient has a total cholesterol of 374 with an LDL of 201 and HDL of 58 -80 mg of atorvastatin started # [id number] diabetes mellitus with poor control hemoglobin A1c is 8.3 however the patient's blood sugars are up trending now in the last blood sugars for 16 initially was 220 I have started the patient on Lantus 20 units of morning she had received tenuous this evening and a high dose sliding scale insulin. 01/19 increase Lantus 30 units b.i.d. # hypertension currently allowing for permissive hypertension - did not start any antihypertensive medications I spent a total of 17 minutes on reviewing various resuscitative measures/ ACP with the patient at the time of admission. The patient has decided on a full code status Date of Service: January 19, 2025 Billing Provider: BRITTANEY PHILLIP DO Common Visit Codes: [id number] INP/OBS CARE(HIGH) BRITTANEY PHILLIP DO January 19, 2025 20:09
[2025-01-19] MEDS ORDERED: PRED20TA PO (20:14)
[2025-01-19] MEDS ORDERED: ATOR-2 PO (20:14)
[2025-01-19] MEDS ORDERED: VALA100031 PO (20:14)
[2025-01-19] MEDS: HYDROcodone/acetaminophen 5mg/325mg tablet PO ONE (21:13)
[2025-01-20] VITALS (7 sets, daily range): BP systolic 137–255; BP diastolic 85–118; PULSE 64–95; RESP 15–19; TEMP 97.6–98.1; O2SAT 97–99
[2025-01-20 06:19] LABS: BASOPHILS % (AUTO) 0.4 % (0-1); EOSINOPHILS % (AUTO) 0.1 % (0-6); HEMATOCRIT 44.3 % (35.0-45.0); HEMOGLOBIN 14.9 g/dl (12.0-16.0); LYMPHOCYTES # (AUTO) 1.9 X10'3 (1.1-4.8); LYMPHOCYTES % (AUTO) 16.3 % (21-51); MEAN CORPUSCULAR HEMOGLOBIN 29.8 PG (27.0-31.0); MEAN CORPUSCULAR HGB CONC 33.6 g/dL (33.0-36.5); MEAN CORPUSCULAR VOLUME 88.8 FL (78-98); MEAN PLATELET VOLUME 7.7 FL (7.4-10.4); MONOCYTES # (AUTO) 0.4 X10'3 (0-0.9); MONOCYTES % (AUTO) 3.6 % (2-12); NEUTROPHILS # (AUTO) 9.2 X10'3 (1.8-7.7); NEUTROPHILS % (AUTO) 79.6 % (42-75); PLATELET COUNT 278 X10'3 (140-440); RED CELL DISTRIBUTION WIDTH 14.1 % (11.5-14.5); WHITE BLOOD COUNT 11.5 X10'3 (4.5-11.0)
[2025-01-20 06:21] LABS: ALANINE AMINOTRANSFERASE 75 U/L (12-78); ALBUMIN 3.6 G/DL (3.4-5.0); ALBUMIN/GLOBULIN RATIO 0.9 (1.1-1.5); ALKALINE PHOSPHATASE 94 IU/L (46-116); ANION GAP 10 (8-16); ASPARTATE AMINO TRANSFERASE 20 U/L (10-37); BILIRUBIN,TOTAL 0.5 MG/DL (0.1-1.0); BLOOD UREA NITROGEN 23 MG/DL (7-18); CALCIUM 9.2 MG/DL (8.5-10.1); CHLORIDE 103 MMOL/L (99-107); GLUCOSE 255 MG/DL (70-104); MAGNESIUM 2.2 MG/DL (1.5-2.4); POTASSIUM 3.8 MMOL/L (3.5-5.1); SODIUM 140 MMOL/L (135-145); TOTAL CARBON DIOXIDE 27.4 MMOL/L (24-32); TOTAL PROTEIN 7.4 G/DL (6.4-8.2); eCRCL 55 ML/MIN; eGFR 58 ML/MIN
[2025-01-20] MEDS: insulin glargine (Lantus) pen - multi-dose SQ SCH (08:00)
[2025-01-20] MEDS: predniSONE 20 mg tablet PO SCH (09:17)
[2025-01-20] MEDS: atorvastatin 20mg tablet PO SCH (09:18)
[2025-01-20] MEDS: clopidogrel 75mg tablet PO SCH (09:19)
[2025-01-20] MEDS: aspirin 81mg tab.chew PO SCH (09:20)
[2025-01-20] MEDS: polyvinyl alcohol eye drops 15ML BOTTLE EACHEYE PRN (09:20)
[2025-01-20] MEDS: HYDROcodone/acetaminophen 5mg/325mg tablet PO PRN (11:38)
[2025-01-20] MEDS: hydrALAZINE 20mg/ml inj. IV PRN ×2 (11:46→17:08)
[2025-01-20] MEDS: acetaminophen 325mg tablet PO PRN (15:21)
--- NOTE | 2025-01-20 15:33 | PROGRESS NOTE ---
Daily Progress Note Providers to CC ~ Antibiotic Timeout Antibiotic Ordered?: No Subjective Complains of headache ,reports left facial numbness is resolved. Objective Vital Signs Date Time Temp Pulse Resp B/P (MAP) Pulse Ox O2 Delivery O2 Flow Rate FiO2 01/20/25 11:46 72 01/20/25 11:38 16 01/20/25 10:20 97.8 137/118 (124) 97 Room Air Result Diagram: 01/20/25 0532 01/20/25 0532 Alert oriented in NAD HEENT NC, AT , EOMI, Sclera anicteric, conjuctiva pinkish, moist oral mucosa Neck supple, no JVD , Chest clear to auscultation , no wheezes crackles or rhonchi Heart RRR, No murmur gallop or rub Abdomen soft nontender no organomegaly Extremities No C/C/E Neuro exam:Right nasolabial fold flattening , right forehead flattening and Coagulation Studies Laboratory Tests Test 01/18/25 08:27 Prothrombin Time 9.9 SECONDS (9.0-12.0) INR International Normalized Ratio 1.0 INR Activated Partial Thromboplast Time 25 SECONDS (22-32) Coagulation Comments Other Results Medications reviewed Problem\Assessment\Plan Problems/Diagnosis: (1) CVA (cerebral vascular accident) 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 Dr Rosario tele neurologist recommended a stroke workup and to start 75 mg of Plavix daily along with 81 mg aspirin daily x3 weeks and a check a fasting lipid panel. The patient's MRI of the head was negative for CVA CTA of the head demonstrated a high-grade stenosis of the cavernous segment of the right internal carotid artery. Dr. Ojeda discussed this finding with neurosurgeon Dr. Jones and Dr. Thorne ED physician discussed these findings with on-call neuro interventional radiologist Dr. Baker at [facility] who recommended antiplatelets but no emergent intervention Continue prednisone 60 mg daily x7 days as well as a five day tapering dose- valacyclovir is also recommended with 1 g t.i.d. x7 days # Lti-dzcxksf-nrrjmglvc diabetes mellitus with poor control hemoglobin A1c is 8.3 . Continue Lantus # HTN - Resume antihypertensive medications # WALLACE Percocet PRN # Full code. Date of Service: Jan 20, 2025 Billing Provider: PAIGE MONROE MD Common Visit Codes: [id number] INP/OBS CARE(HIGH) PAIGE MONROE MD Jan 20, 2025 15:33
[2025-01-20] MEDS: oxyCODONE/APAP 5-325mg tablet PO PRN (16:05)
[2025-01-20] MEDS ORDERED: chlorthalidone 25mg tablet PO STA (17:22)
[2025-01-20] MEDS: chlorthalidone 25mg tablet PO STA (17:51)
[2025-01-20] MEDS: losartan 50mg tablet PO STA (17:51)
[2025-01-20] MEDS: hyDRALAzine 10mg tablet PO STA (17:52)
[2025-01-20] MEDS: hyDRALAzine 10mg tablet PO SCH (23:43)
[2025-01-21 05:00] VITALS: BP 195/109; PULSE 82; RESP 14; TEMP 98.2; O2SAT 99
[2025-01-21 06:39] LABS: BASOPHILS # (AUTO) 0.1 X10'3 (0-0.2); BASOPHILS % (AUTO) 0.5 % (0-1); EOSINOPHILS # (AUTO) 0.1 X10'3 (0-0.9); EOSINOPHILS % (AUTO) 1.4 % (0-6); HEMOGLOBIN 16.3 g/dl (12.0-16.0); LYMPHOCYTES # (AUTO) 3.7 X10'3 (1.1-4.8); LYMPHOCYTES % (AUTO) 34.4 % (21-51); MEAN CORPUSCULAR HEMOGLOBIN 29.9 PG (27.0-31.0); MEAN CORPUSCULAR HGB CONC 33.8 g/dL (33.0-36.5); MEAN CORPUSCULAR VOLUME 88.4 FL (78-98); MEAN PLATELET VOLUME 7.4 FL (7.4-10.4); MONOCYTES # (AUTO) 0.6 X10'3 (0-0.9); MONOCYTES % (AUTO) 5.9 % (2-12); NEUTROPHILS # (AUTO) 6.1 X10'3 (1.8-7.7); NEUTROPHILS % (AUTO) 57.8 % (42-75); PLATELET COUNT 306 X10'3 (140-440); RED BLOOD COUNT 5.43 X10'6 (4.20-5.60); RED CELL DISTRIBUTION WIDTH 14.3 % (11.5-14.5); WHITE BLOOD COUNT 10.6 X10'3 (4.5-11.0)
[2025-01-21 06:57] LABS: ALANINE AMINOTRANSFERASE 81 U/L (12-78); ALBUMIN 3.8 G/DL (3.4-5.0); ALKALINE PHOSPHATASE 101 IU/L (46-116); ANION GAP 10 (8-16); ASPARTATE AMINO TRANSFERASE 26 U/L (10-37); BILIRUBIN,TOTAL 0.6 MG/DL (0.1-1.0); BLOOD UREA NITROGEN 19 MG/DL (7-18); BUN/CREATININE RATIO 21.3 (10.0-20.0); CALCIUM 9.5 MG/DL (8.5-10.1); CHLORIDE 102 MMOL/L (99-107); CREATININE 0.89 MG/DL (0.40-0.90); GLUCOSE 185 MG/DL (70-104); MAGNESIUM 2.1 MG/DL (1.5-2.4); POTASSIUM 3.2 MMOL/L (3.5-5.1); SODIUM 139 MMOL/L (135-145); TOTAL CARBON DIOXIDE 26.9 MMOL/L (24-32); TOTAL PROTEIN 7.8 G/DL (6.4-8.2); eCRCL 62 ML/MIN; eGFR 67 ML/MIN
[2025-01-21 07:10] VITALS: BP 153/80
[2025-01-21] MEDS ORDERED: chlorthalidone 25mg tablet PO SCH (08:00)
[2025-01-21] MEDS: chlorthalidone 25mg tablet PO SCH (08:15)
[2025-01-21] MEDS: losartan 50mg tablet PO SCH (08:16)
[2025-01-21] MEDS: potassium Cl 20 mEq SR tablet PO PRN (08:17)
[2025-01-21 11:21] VITALS: BP 132/70; PULSE 99; RESP 14; TEMP 98.3; O2SAT 98
[2025-01-21] MEDS ORDERED: valcyclovir (11:50)
[2025-01-21] MEDS ORDERED: CLOP-32 PO (11:54)
[2025-01-21] MEDS ORDERED: ASPI81TA52 PO (11:54)
--- NOTE | 2025-01-21 15:17 | DISCHARGE SUMMARY ---
Discharge Summary Providers to CC ~ Discharge Summary Admission Diagnosis: acute cva Hospital Course DATE OF ADMISSION: DATE OF DISCHARGE: 01/21/2025 Condition on DC: Stable *Problems/Diagnosis: (1) CVA (cerebral vascular accident) Status: Acute PAIGE MONROE MD Jan 21, 2025 15:17
== END 2025-01-21 14:23 | disposition home or self-care (01) | DRG 48 ==
LOC: ER 08:12 → ED HOLD 11:45 → ORTHO 4S 16:40
PROVIDERS: ADMIT Family Medicine; ATTEND Family Medicine
PROC: B3251ZZ Computerized Tomography (CT Scan) of Bilateral Common Carotid Arteries using Low Osmolar Contrast (ICD-10-PCS; principal; 2025-01-18)
PROC: B32G1ZZ Computerized Tomography (CT Scan) of Bilateral Vertebral Arteries using Low Osmolar Contrast (ICD-10-PCS; 2025-01-18)
PROC: B32R1ZZ Computerized Tomography (CT Scan) of Intracranial Arteries using Low Osmolar Contrast (ICD-10-PCS; 2025-01-18)
PROC: B3281ZZ Computerized Tomography (CT Scan) of Bilateral Internal Carotid Arteries using Low Osmolar Contrast (ICD-10-PCS; 2025-01-18)
DX: G51.0 Bell's palsy (principal); I10 Essential (primary) hypertension; I73.00 Raynaud's syndrome without gangrene; Z79.4 Long term (current) use of insulin; Z79.84 Long term (current) use of oral hypoglycemic drugs; Z80.3 Family history of malignant neoplasm of breast; Z82.5 Family history of asthma and other chronic lower respiratory diseases
CPT/HCPCS: 36415; 70450; 70496; 70498; 70551; 71045; 80048; 80053; 80061; 82948; 83036; 83735; 85025; 85610; 85730; 87081; 92508; 92616; 93005; 93306; 96360; 96372; 99291; G0378; J0360; J1815; J1885; J2919; J3490; J7030; J7120; J7512; Q9967

== ENCOUNTER 2025-07-12 10:21 | Inpatient (IN) | payer MEDICAID ==
[~2025-07-12] VITALS: Ht 160 cm; Wt 86.4 kg
[~2025-07-12 10:21] MED LIST changes: +ATOR-2 PO; +CHLO25TA10 PO; +CLOP-32 PO; +CYCL-1 PO; +EMPA10TA PO; +ERGO500093 PO; +FENO160T34 PO; +GABA-535 PO; +GLIM1TAB57 PO; +IBUP600T52 PO; +LANTUS SQ; +LIDO700A47 TOP; +POTA-207 PO; +SEMA1PEN5; +SERT-434 PO; +VALA100031 PO; +valcyclovir
--- NOTE | 2025-07-12 10:28 | ELECTROCARDIOGRAPH REPORT ---
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 SHAHID Huerta Measurements Intervals [place] Rate: 72 P: 69 WV: 180 QRS: 94 QRSD: 100 T: 0 QT: 378 QTc: 414 Interpretive Statements Sinus rhythm Borderline right axis deviation Borderline repolarization abnormality Electronically Signed On 07-12-2025 19:17:[address] SHAHID Huerta Please click the below link to view image of tracing.
--- NOTE | 2025-07-12 10:48 | RADIOLOGY REPORT ---
CHEST RADIOGRAPH Indication: CP Technique: Single frontal view of the chest was obtained Comparison: DI CHEST,SINGLE VIEW on DOS: 01/18/25, DI CHEST,SINGLE VIEW on DOS: 11/03/24, CHEST,SINGLE VIEW on DOS: 08/09/21 FINDINGS: Lines and Tubes: None Lungs: No focal consolidation. Pleura: No effusion. No pneumothorax. Cardiomediastinal contours: Unremarkable Bones: No acute osseous abnormality. IMPRESSION: No acute cardiopulmonary disease.
[2025-07-12 10:50] LABS: MEAN PLATELET VOLUME 7.6 FL (7.4-10.4); RED CELL DISTRIBUTION WIDTH 14.0 % (11.5-14.5)
--- NOTE | 2025-07-12 10:55 | Physician Documentation ---
History of Present Illness ~ Chief Complaint: Chest Pain Stated Complaint: CP Time Seen by MD: 10:24 OK to notify your PCP?: Yes Primary Medical Doctor: Rebeca Source: patient Mode of Arrival: EMS Exam Limitations: no limitations HPI 49 year old female with chief complaint acute onset of chest pain that was over right side of her chest and radiated to her right scapula that occurred when she was sitting down at work just prior to arrival. Shortly after the chest pain started she reports she experienced nausea and vomiting. She describes the emesis as green yellow in color. She ate her usual breakfast this morning which is a bowl of fruit. She is on a GLP one but states that she has been on this now for several months and doing very well and there has been no recent dosage change. She last administered this medication three days ago. She reports that the nausea resolved after she vomited. She states the chest pain has improved significantly in his now in a smaller area on her chest and is less severe. Patient was treated with nitro in the ambulance x2 but this did not change her symptoms. Medication Reconciliation Allergies: Uncoded Allergies: DEPO PROVERA (Allergy, Intermediate, 10/29/13) DEPO SHOT (Allergy, Intermediate, 10/29/13) Scheduled Alogliptin Benzoate (Alogliptin), 1 TAB PO DAILY, (Reported) Atorvastatin Calcium (Atorvastatin Calcium), 1 TAB PO DAILY, (Reported) Atorvastatin Calcium (Atorvastatin Calcium), 1 TAB PO DAILY Chlorthalidone (Chlorthalidone), 1 TAB PO DAILY, (Reported) Chlorthalidone (Chlorthalidone), 1 TAB PO DAILY, (Reported) Clopidogrel Bisulfate (Plavix), 1 TAB PO DAILY Cyclobenzaprine* (Cyclobenzaprine*), 1 TAB PO HS, (Reported) Empagliflozin (Jardiance), 1 TAB PO DAILY, (Reported) Ergocalciferol (Vitamin D2) (Vitamin D2), 1 CAP PO Q7D, (Reported) Fenofibrate (Fenofibrate), 1 TAB PO DAILY, (Reported) Glimepiride* (Amaryl*), 1 TAB PO DAILY, (Reported) Hydralazine HCl (Hydralazine HCl), 1 TAB PO TID, (Reported) Lidocaine (Lidocaine), 1 PATCH TOP DAILY, (Reported) Losartan Potassium (Losartan Potassium), 1 TAB PO DAILY, (Reported) Potassium Chloride* (K-Dur*), 1 TAB PO BID, (Reported) Sertraline HCl (Sertraline HCl), 1 TAB PO DAILY, (Reported) Valacyclovir HCl (Valacyclovir), 1 TAB PO Q8H [valcyclovir], 1 TAB Q6H Scheduled PRN Gabapentin (Gabapentin), 1 CAP PO TID PRN for pain, (Reported) Ibuprofen (Ibuprofen), 1 TAB PO TID PRN for pain, (Reported) Miscellaneous Medications Insulin Glargine,Hum.rec.anlog* (Lantus*), Unknown Dose SQ, (Reported) Semaglutide (Wegovy), Unknown Dose, (Reported) Past Medical History Past Medical History: No Pertinent History, Hypertension, Constipation, *RENAL/* Past Surgical History: other Patient History: FH: COPD (chronic obstructive pulmonary disease) MOTHER FH: breast cancer Maternal grandmother Alcohol Use: None Drug Use: marijuana Review of Systems All Other Systems at this time: Reviewed and Negative Physical Exam Vital Signs: Temperature: 97.8, Source: Oral, Heart Rate: 80, Respiratory Rate: 16, BP: 160/82, Pulse Oximetry: 99, Weight: 76.000 Physical Exam GENERAL: Alert, no acute distress. HEENT: NCAT, EOMI, PERRL, normal oropharynx, moist oral mucosa. NECK: Supple, trachea midline. CARDIAC: Regular rate and rhythm, no murmurs, rubs, or gallops. Equal distal pulses. No lower extremity edema, cap refill less than 2 seconds. RESPIRATORY: Equal breath sounds, clear to auscultation bilaterally, no respiratory distress. GASTROINTESTINAL: Non distended, soft, nontender, No guarding or rebound. MUSCULOSKELETAL: Normal range of motion, nontender, no swelling. Normal gait. NEUROLOGICAL: Awake, alert, and oriented x 3. SKIN: Warm/dry, no pallor, no rash. PSYCH: Alert and appropriate. Affect congruent with mood. Speech is clear. Good eye contact. Progress Results/Orders Results/Orders Orders - ISRA ARANDA Hospitalist (07/12/25 11:32) Completed Orders - ISRA ARANDA Normal Saline 1000ml (0.9% Sodium Chlori (07/12/25 11:05) Medications Received in ER Medications (Trade) Dose Ordered Sig/[place] Route PRN Reason Start Time Stop Time Status Last Admin Dose Admin (0.9% sodium chloride (NS) 1000ml IV soln) 1,000 ml ONCE ONCE IVB 07/12/25 11:05 07/12/25 11:06 DC 07/12/25 11:11 1,000 ML Vital Signs 07/12/25 07/12/25 07/12/25 10:24 10:30 10:51 Temp 97.8 Pulse 84 80 Resp 18 16 16 B/P (MAP) 158/80 160/82 (108) Pulse Ox 99 99 Laboratory Tests Test 07/12/25 10:34 White Blood Count 12.6 H Red Blood Count 5.14 Hemoglobin 15.1 Hematocrit 44.9 Mean Corpuscular Volume 87.3 Mean Corpuscular Hemoglobin 29.4 Mean Corpuscular Hemoglobin Concent 33.7 Red Cell Distribution Width 14.0 Platelet Count 286 Mean Platelet Volume 7.6 Neutrophils (%) (Auto) 75.5 H Lymphocytes (%) (Auto) 17.9 L Monocytes (%) (Auto) 2.6 Eosinophils (%) (Auto) 3.4 Basophils (%) (Auto) 0.6 Neutrophils # (Auto) 9.5 H Lymphocytes # (Auto) 2.3 Monocytes # (Auto) 0.3 Eosinophils # (Auto) 0.4 Basophils # (Auto) 0.1 CBC Comment Sodium Level 138 Potassium Level 4.1 Chloride Level 104 Carbon Dioxide Level 25.7 Anion Gap 8 Blood Urea Nitrogen 12 Creatinine 0.75 Estimated GFR/1.73 m2 81 BUN/Creatinine Ratio 16.0 Glucose Level 147 H Calcium Level 9.1 Troponin I High Sensitivity 8 Pro-B-Type Natriuretic Peptide 476 H Albumin 4.1 Chemistry Comments Heart Score: Heart Score Response (Comments) Value History Slightly Suspicious 0 EKG Normal 0 Age 45-64 1 Risk Factors >3 or Hx ASHD 2 Troponin Normal limit 0 Total 3 Medical Decision Making Additional information obtaine: old records Findings RECENT RECORDS FOR WHICH SHOWED HIGH GRADE STENOSIS OF CAVERNOUS SECTION OF RIGHT INTERNAL CAROTID ARTERY Heart Score: 3 Differential Dx:Considerations: Include: angina, aortic dissection, chest wall pain, cholelithiasis, CHF, costochondritis, esophageal reflux/spasm, gastritis, herpes zoster, myocardial infarction, pericarditis, pleuritis, pancreatitis, pneumonia, pneumothorax, pulmonary embolus, other Additional Information Patient was recently admitted for a TIA and findings on CTA of head and neck showed high-grade stenosis of the cavernous section of the right internal carotid artery. Given the stenosis of this section of her artery and now she is experiencing chest pain I recommend admission as given her high grade stenosis of a portion of her carotid artery she is certainly at risk for stenosis of vessels around the heart. Departure Time of Disposition: 10:55 Disposition: 01 HOME / SELF CARE / HOMELESS Admitted to Inpatient Unit: to hospitalist Impression: Primary Impression: Chest pain Qualified Codes: R07.9 - Chest pain, unspecified Condition: Fair Referrals: NO PRIMARY CARE PROVIDER (PCP) Education Educated: Patient Educated regarding: diagnosis, treatment, need for follow up Signature Scribe Signature: x Attestation: ISRA Peguero Jul 12, 2025 10:55
[2025-07-12] MEDS: normal saline 1000ML IV soln IVB ONE (11:11)
[2025-07-12 11:13] LABS: CREATININE 0.75 MG/DL (0.40-0.90); PRO BRAIN NATRIURETIC PEPTIDE 476 PG/ML (0-125); TOTAL CARBON DIOXIDE 25.7 MMOL/L (24-32); eCRCL 73 ML/MIN; eGFR 81 ML/MIN
[2025-07-12] MEDS ORDERED: ondansetron/PF 4mg/2ml inj IV PRN (13:15)
[2025-07-12] MEDS ORDERED: potassium Cl 40MEQ/1/2NS 520ml 520 ML IV PRN (13:15)
[2025-07-12] MEDS ORDERED: magnesium sulf-water 2g/50mL 50 ML IV PRN (13:15)
[2025-07-12] MEDS ORDERED: magnesium hydroxide 30ml (MOM) UD suspension PO PRN (13:15)
[2025-07-12] MEDS ORDERED: magnesium Cl slow-release 64mg tablet PO PRN (13:15)
[2025-07-12] MEDS ORDERED: magnesium sulf-water 4G/100mL 100 ML IV PRN (13:15)
[2025-07-12] MEDS ORDERED: mag hydrox/Alum hydrox/simeth 30ml oral suspension PO PRN (13:15)
[2025-07-12] MEDS ORDERED: potassium Cl 20 mEq SR tablet PO PRN (13:15)
[2025-07-12 13:33] LABS: LEUKOCYTE ESTERASE ,URINE NEGATIVE (Neg); NITRITES, URINE NEGATIVE (Neg); OCCULT BLOOD,URINE NEGATIVE (Neg)
[2025-07-12 13:39] LABS: UA COLLECTION TYPE URINAL
[2025-07-12 13:41] LABS: MUCUS STRANDS FEW /LPF (Neg); SQUAMOUS EPITHELIAL CELL,UR MANY /LPF (FEW)
[2025-07-12 14:05] LABS: PRO BRAIN NATRIURETIC PEPTIDE 575.0 PG/ML (0-125)
[2025-07-12 15:45] VITALS: BP 148/70; PULSE 73; TEMP 97.6
[2025-07-12] MEDS ORDERED: aminophylline 250mg/10ml inj. IV PRN (16:00)
[2025-07-12] MEDS ORDERED: metoprolol tartrate 1mg/ml inj IV PRN (16:00)
[2025-07-12] MEDS: labetalol 20mg/4ml (5mg/ml) syringe IV ONE (16:05)
[2025-07-12] MEDS: HYDROcodone/acetaminophen 5mg/325mg tablet PO PRN (17:29)
[2025-07-12 18:00] VITALS: BP 149/93; PULSE 68; RESP 12; TEMP 97.3; O2SAT 98
--- NOTE | 2025-07-12 18:28 | HISTORY AND PHYSICAL-Residence ---
History & Physical Providers to CC Resident Creating Document: FATOUDUANEBRIAN PLATA, RES CC: TROY CONTRERAS MD ~ History of Present Illness Primary Medical Doctor: Rebeca Reason for Admit\Complaint: Chest pain History of Present Illness A 49-year-old female with PMH of TIA three months ago, HTN presented to the ED after she started to have chest pain while sitting in the couch at around 8:30 a.m. in the morning on the day of admission that started at the right collarbone, radiated in between the breast and right armpit area. The patient describes the pain as pressure and burning in type with a severity of 8/10. Associated with headache and pain behind her eyes. Patient had heart burning feeling in the chest and in upper abdomen. Patient had an episode of vomitings which is greenish-yellow in color. Patient denies any change in chest pain with inspiration or leaning forward. Patient's chest pain relieved with taking two tablets of nitroglycerin while being transported to the hospital in the ambulance. Patient had this episode associated with lightheadedness. Patient endorses palpitations about two days ago that has been intermittent. 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 Patient underwent a stress test few years ago which was negative. Patient denies orthopnea, PND or bilateral pedal edema Patient denies similar history in the past, travel history, fever, associated sick contacts. Patient denies burning micturition, abdominal pain, increased urgency of urination She was admitted in 2020 in view of syncope secondary to QTC prolongation. Allergies: Uncoded Allergies: DEPO PROVERA (Allergy, Intermediate, 10/29/13) DEPO SHOT (Allergy, Intermediate, 10/29/13) Home Medications Home Medications Active [valcyclovir] 1,000 1 Tab Q6H 7 Days Atorvastatin Calcium 80 Mg Tablet 1 Tab PO DAILY 30 Days Valacyclovir (Valacyclovir HCl) 1,000 Mg Tablet 1 Tab PO Q8H 6 Days Reported K-Dur* (Potassium Chloride) 20 Meq Tab.prt.sr 1 Tab PO BID Lidocaine 5 % Adh..patch 1 Patch TOP DAILY Ibuprofen 600 Mg Tablet 1 Tab PO TID PRN Chlorthalidone 25 Mg Tablet 1 Tab PO DAILY Sertraline HCl 100 Mg Tablet 1 Tab PO DAILY Vitamin D2 (Ergocalciferol (Vitamin D2)) 1,250 Mcg (87380 Unit) Capsule 1 Cap PO Q7D Fenofibrate 160 Mg Tablet 1 Tab PO DAILY Amaryl* (Glimepiride) 1 Mg Tablet 1 Tab PO DAILY Jardiance (Empagliflozin) 10 Mg Tablet 1 Tab PO DAILY Hydralazine HCl 50 Mg Tablet 1 Tab PO TID Losartan Potassium 100 Mg Tablet 1 Tab PO DAILY Chlorthalidone 50 Mg Tablet 1 Tab PO DAILY Past Medical History Past Medical History HTN DM TIA Meningioma Sleep apnea Past Surgical History Surgical History Comment Brain surgery for sleep apnea Resection of the meningioma Cholecystectomy Family History Family History: FH: COPD (chronic obstructive pulmonary disease) MOTHER FH: breast cancer Maternal grandmother Past Social History Social History Comment Lives at home Occasionally consumes alcohol, last drink was 3-4 weeks ago Consumes marijuana (shoes) Denies smoking, any other illicit drug use Primary care: [facility] in [place] [facility] 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 No diarrhea, constipation, hematemesis, abdominal pain, bloating, melena or fresh blood Musculoskeletal: Deformities joint pains or edema Integumentary: No change in skin, hair, nails. No swelling, bruising, abrasions Neurologic: No headache, neck pain, numbness or tingling of the extremities, weakness Psychiatric: No delusions, depression, loss of interest in normal activity or change in sleep pattern, hallucinations, suicidal ideations Endocrine: No fatigue, weakness, polydipsia, polyuria, change in appetite, heat or cold intolerance, sweating, dry skin Exam Vitals: Vital Signs Date Time Temp Pulse Resp B/P (MAP) Pulse Ox O2 Delivery O2 Flow Rate FiO2 07/12/25 15:45 97.6 73 148/70 (96) 07/12/25 14:16 16 07/12/25 12:55 98 0 General: General: Alert, awake, oriented, not in acute distress HEENT: PERRLA, no icterus, pallor, lymphadenopathy, carotid bruit Respiratory system: Bilateral vesicular breath sounds heard, no adventitious breath sounds CVS: S1-S2 heard, grade 2/6 ESM in the aortic area GI: Soft, nontender, no organomegaly, no guarding/rigidity, bowel sounds present Neuro: No focal neurological deficits present Mental status exam: alert and consciousness, orientation, memory, speech - Cranial nerve test: Cranial nerves 2-12 intact - Motor system: Nutrition, Tone 3+, Power 5/5, no involuntary movements - Sensory system: Intact - Reflex testing: Biceps, triceps and knee reflexes 2+ - Cerebellar: Normal Extremities: No edema cyanosis clubbing/deformities Skin: Warm and dry Diagnostic Data Last Recorded Lab Results: 07/12/25 1034 07/12/25 1034 Advance Care Planning Advanced Care plannin - 30 Minutes (I spent 20 minutes discussing various resuscitative measures and the patient decided to be full code) Additional Plan Assessment: 49-year-old female with PMH of HTN, TIA three months ago presented to the ED in view of edit chest pain with a history of palpitations two days ago. On further evaluation patient was found to have pulmonary congestion on chest x-ray with elevated blood pressure readings. Patient is being admitted for acute exacerbation of heart failure with preserved ejection fraction and hypertensive urgency. Plan: Atypical chest pain 2/2 acute exacerbation of HFpEF ACS, rule out Can not exclude pericarditis, requires evaluation Echo (Dec, 2024): EF: 65%, mildly dilated left atrium. RVSP: 23 [address] shows mild ST depressions in two, three, AVF and V5 V6 Chest x-ray: Pulmonary vascular congestion Elevated proBNP Received one dose of IV Lasix 40 mg in the ED, continue IV Lasix 40 mg b.i.d. Monitor Is&Os GDM T: We will be started in a.m. once the patient stabilizes. Consider Jardiance 10 mg Hypertensive urgency Uncontrolled HTN Received one dose of IV labetalol 10 mg IV labetalol 5 mg p.r.n. Started on losartan 50 mg p.o. daily Patient takes losartan 100 mg and hydralazine 50 mg at home. Please re-evaluate with the patient requires higher doses and consider an alternative to hydralazine Continue to monitor vitals Mild leukocytosis Probably reactive Continue to monitor Normal procalcitonin and ESR History of syncope 2/2 QTC prolongation Currently no management We will re-evaluate in a.m. History of TIA ? Meningioma resection Continue aspirin 81 mg Complaining of headache: Pain management with [place]/Tylenol If the patient's headache does not relieve with blood pressure control and pain management-can consider CT head to rule out any acute stroke Diabetes mellitus type 2 A1c in December: 8.3 Hyper/hypoglycemia protocol Continue to monitor blood sugars Started on Lantus 10 units, low-dose sliding scale insulin Marijuana use disorder learning services coordinator consult Follow up with U tox Status: Full code Diet: Heart healthy, NPO after midnight DVT prophylaxis: Heparin Disposition: Admit to PCU, Lexiscan in a.m. Brian Palmer MD Internal Medicine, PGY 2 Date of Service: Jul 12, 2025 Billing Provider: TROY CONTRERAS MD Common Visit Codes: 19254-[id number] INP/OBS CARE (HIGH) Secondary Visit Codes: 07839-[id number] CARE PLAN 30 MINUTES BRIAN PALMER, RES Jul 12, 2025 18:28 TROY CONTRERAS MD Jul 14, 2025 07:08
[2025-07-12] MEDS ORDERED: DEXTROSE 15 GM of carb/4 tabs (each vial/BOTTLE has 4 tablets) PO PRN ×2 (18:35)
[2025-07-12] MEDS ORDERED: glucagon, human recombinant 1mg kit SUBCUT PRN (18:35)
[2025-07-12] MEDS ORDERED: dextrose 50%-water 50ml dispensing syringe IV PRN ×2 (18:35)
[2025-07-12 18:53] LABS: URINE AMPHETAMINE SCREEN NEGATIVE (Neg); URINE BARBITUATE SCREEN NEGATIVE (Neg); URINE BENZODIAZEPINES SCREEN NEGATIVE (Neg); URINE CANNABINOID SCREEN POSITIVE (Neg); URINE COCAINE SCREEN NEGATIVE (Neg); URINE METHADONE SCREEN NEGATIVE (Neg); URINE OPIATE SCREEN NEGATIVE (Neg); URINE PHENCYCLIDINE SCREEN NEGATIVE (Neg)
[2025-07-12 19:32] VITALS: BP 162/78; PULSE 74
[2025-07-12] MEDS: docusate sod 100mg capsule PO SCH (19:36)
[2025-07-12] MEDS: K and/or MAG REPLACEMENT MC SCH (19:36)
[2025-07-12] MEDS: heparin, porcine 5000 units/ml vial SQ SCH (19:37)
[2025-07-12 20:00] VITALS: RESP 12; O2SAT 98
[2025-07-12] MEDS ORDERED: MECL50TA4 PO (20:01)
[2025-07-12] MEDS: INSULIN LISPRO 100 UNIT/ML INSULN.PEN MULTI-DOSE SQ SCH (20:03)
[2025-07-12] MEDS: insulin glargine (Lantus) pen - multi-dose SQ SCH (20:06)
[2025-07-12 22:00] VITALS: BP 126/84; PULSE 72; RESP 14; TEMP 97.2; O2SAT 97
[2025-07-12] MEDS: FLU VACC TS2025-26(6MOS UP)/PF (FLULAVAL) 45 MCG/0.5 ML SYRINGE IMVAC ONE (22:26)
[2025-07-13] VITALS (9 sets, daily range): BP systolic 134–163; BP diastolic 74–94; PULSE 66–112; RESP 13–16; TEMP 97.4; O2SAT 95–99
[2025-07-13 08:22] LABS: MEAN PLATELET VOLUME 7.7 FL (7.4-10.4); RED CELL DISTRIBUTION WIDTH 14.1 % (11.5-14.5)
[2025-07-13 08:34] LABS: CREATININE 0.72 MG/DL (0.40-0.90); TOTAL CARBON DIOXIDE 29.5 MMOL/L (24-32); eCRCL 76 ML/MIN; eGFR 85 ML/MIN
[2025-07-13] MEDS: regadenoson 0.4mg/5ml syringe IV PRN (10:35)
[2025-07-13] MEDS: potassium Cl 20 mEq SR tablet PO PRN (10:59)
--- NOTE | 2025-07-13 12:14 | RADIOLOGY REPORT ---
Procedure: NM NM PATRICK SCAN Exam Date: 07/13/2025 09:39 AM Reason for study/Clinical History: acs rule out Comparison Study: None Myocardial Perfusion Study with SPECT Technique: The patient received an intravenous injection of 8.8 mCi of technetium 99m Myoview while at rest. After a short delay, SPECT tomographic images of the heart were obtained. The patient then went to the stress lab and received an intravenous infusion of Lexiscan utilizing standard protocol. 32.9 mCi of technetium-99m Myoview was injected intravenously following Lexiscan infusion also per standard protocol. After a short delay, gated SPECT tomographic images of the heart were acquired and processed into the standard views. Findings: No visualized perfusion defects. No significant artifacts. Normal contractility both qualitatively and quantitatively. Ejection fraction calculated at 74 percent. Impression: 1. Normal left ventricular size, wall motion, and function, without evidence of infarction or of myocardium at ischemic risk. The left ventricular ejection fraction is calculated at 74%.
--- NOTE | 2025-07-13 17:31 | DISCHARGE SUMMARY-Residence ---
Discharge Summary Providers to CC Resident Creating Document: ESTEPHANIE DURANT, RES ~ Discharge Summary Admission Diagnosis: ACS work up Hospital Course DATE OF ADMISSION: 07/12/25 DATE OF DISCHARGE:07/13/25 Labs at the time of discharge WBC 9.3 Hemoglobin 14.6 Sodium 140 Potassium 3.1 Creatinine 0.72 GFR 85 AST 26 ALT 38 Alkaline phosphatase 74 ProBNP 575 Lexiscan Normal left ventricular size, wall motion, and function, without evidence of infarction or of myocardium at ischemic risk. The left ventricular ejection fraction is calculated at 74%. Discharge Diagnosis\Comment: Chest pain, likely noncardiac ACS ruled out, likely not pericarditis Acute exacerbation of CHF with preserved ejection fraction Hypotensive urgency, uncontrolled hypotension Reactive leukocytosis History of syncope History of TIA Type 2 diabetes mellitus Marijuana use disorder Operations\Procedures: None Consultants: None Complications: None Condition on DC: Stable Continued Medications: Atorvastatin Calcium (Atorvastatin Calcium) 80 Mg Tablet 1 TAB PO DAILY for 30 Days, #30 TAB 0 Refills Empagliflozin (Jardiance) 10 Mg Tablet 1 TAB PO DAILY Ergocalciferol (Vitamin D2) (Vitamin D2) 1,250 Mcg (99368 Unit) Capsule 1 CAP PO Q7D Fenofibrate (Fenofibrate) 160 Mg Tablet 1 TAB PO DAILY Hydralazine HCl (Hydralazine HCl) 50 Mg Tablet 1 TAB PO TID Lidocaine (Lidocaine) 5 % Adh..patch 1 PATCH TOP DAILY Losartan Potassium (Losartan Potassium) 100 Mg Tablet 1 TAB PO DAILY Meclizine HCl (Meclizine HCl) 50 Mg Tablet 1 TAB PO PRN Potassium Chloride* (K-Dur*) 20 Meq Tab.prt.sr 1 TAB PO BID Sertraline HCl (Sertraline HCl) 100 Mg Tablet 1 TAB PO DAILY Discharge Summary: This is a 49-year-old female with a history of TIA, hypotension, type 2 diabetes mellitus present with a he has with a complaint of chest pain at the right collar bone, radiating to middle of the chest and back, started in the morning while she was resting, described the pain as pressure and burning type, graded 8/10, lasted few hours until she was given nitroglycerin in the ambulance, the pain is not associated with change in position or food intake. She also had an episode of vomiting. She also describes on and off palpitations.. About 10 ye ars ago she saw a [facility], was reported that she has PVCs and PACs. Also underwent a stress test few years ago which was negative. Hospital course She was admitted for further evaluation of chest pain, initially thought to be atypical angina. Troponins negative, EKG showed sinus rhythm. Tuyet was scan was done which was negative. ACS was ruled out. Considering the location of the chest pain in the right collarbone and an episode of vomiting, possible biliary abnormality was suspected, patient has a history of cholecystectomy. Normal liver enzymes were noticed. Possible acute on chronic CHF with preserved ejection fraction, mildly elevated proBNP, one dose of Lasix 40 was given in the ER. Hypotensive urgency, uncontrolled hypotension one dose of IV labetalol was given in the ER, continued patient's home medication losartan and hydralazine. Patient has a history of TIA, continued home medication aspirin 81 mg.. For history of type 2 diabetes mellitus was started on Lantus 10 units and sliding scale. By the time of discharge patient reported improvement in the chest pain. Patient is stable enough to be discharged home At the time of discharge had the following physical examination findings General: Alert, awake, oriented, not in acute distress HEENT: PERRLA, no icterus, pallor, lymphadenopathy, carotid bruit Respiratory system: Bilateral vesicular breath sounds heard, no adventitious breath sounds CVS: S1-S2 heard, grade 2/6 ESM in the aortic area GI: Soft, nontender, no organomegaly, no guarding/rigidity, bowel sounds present Neuro: No focal neurological deficits present Mental status exam: alert and consciousness, orientation, memory, speech - Cranial nerve test: Cranial nerves 2-12 intact - Motor system: Nutrition, Tone 3+, Power 5/5, no involuntary movements - Sensory system: Intact - Reflex testing: Biceps, triceps and knee reflexes 2+ - Cerebellar: Normal Extremities: No edema cyanosis clubbing/deformities Skin: Warm and dry Discharge medications Aspirin 81 mg Atorvastatin 80 mg Jardiance 10 mg Hydralazine 50 mg Losartan 100 mg Potassium 20 mEq Discharge instructions Follow up with PCP in 2 weeks. Follow up with [facility] in 2 weeks. CAll 911 or return to ER in case of chest pain, palpitation, SOB *Problems/Diagnosis: (1) Non-cardiac chest pain Total Time Spent on D/C: > 30 Minutes Date of Service: Jul 13, 2025 Billing Provider: TROY CONTRERAS MD Common Visit Codes: 75056-KJK/[id number] DISCH DAY >30min ESTEPHANIE DURANT, RES Jul 13, 2025 17:31 TROY CONTRERAS MD Jul 14, 2025 07:09
== END 2025-07-13 16:20 | disposition home or self-care (01) | DRG 194 ==
LOC: ER 10:22 → ED HOLD 12:08 → PCU 3S 15:14
PROVIDERS: ADMIT Internal Medicine; ATTEND Internal Medicine
PROC: 4A02XM4 Measurement of Cardiac Total Activity, External Approach (ICD-10-PCS; principal; 2025-07-13)
PROC: 3E073KZ Introduction of Other Diagnostic Substance into Coronary Artery, Percutaneous Approach (ICD-10-PCS; 2025-07-13)
DX: I11.0 Hypertensive heart disease with heart failure (principal); I16.0 Hypertensive urgency; D72.829 Elevated white blood cell count, unspecified; E11.9 Type 2 diabetes mellitus without complications; F12.90 Cannabis use, unspecified, uncomplicated; I50.33 Acute on chronic diastolic (congestive) heart failure; R07.89 Other chest pain; G47.30 Sleep apnea, unspecified; Z86.73 Personal history of transient ischemic attack (TIA), and cerebral infarction without residual deficits; Z80.3 Family history of malignant neoplasm of breast; Z90.49 Acquired absence of other specified parts of digestive tract
CPT/HCPCS: 36415; 71045; 78452; 80048; 80076; 80305; 81001; 82948; 83735; 83880; 84145; 84484; 85025; 85651; 93005; 93017; 99285; A9500; G0378; J1644; J1815; J1938; J2270; J2785; J3490; J7030